=== PATIENT | male | born 1990 | race African-American/Black ===

== ENCOUNTER 2019-07-06 14:06 | Emergency (ER) | payer MEDICAID ==
[~2019-07-06] VITALS: Ht 172.7 cm; Wt 113.0 kg
[2019-07-06 14:20] VITALS: BP 147/67
== END 2019-07-06 16:47 | disposition left against medical advice (07) ==
LOC: ER 14:06
DX: Z53.21 Procedure and treatment not carried out due to patient leaving prior to being seen by health care provider (principal)